=== PATIENT | female | born 1950 | race Caucasian/White ===

== ENCOUNTER 2017-10-20 10:34 | Emergency (ER) ==
[2017-10-20 10:42] VITALS: TEMP 99.6; BMI 26.7
--- NOTE | 2017-10-20 11:48 | US ---
EXAM: Left lower extremity venous Doppler History: Left lower extremity pain. Technique: Multiple sonographic images through the left lower extremity were obtained. Color duplex Doppler was used to interrogate vascular flow. Findings: The left common femoral, greater saphenous, profunda, superficial femoral, popliteal, ramsey iam, posterior tibial and anterior tibial veins demonstrate spontaneous flow with normal compression and normal augmentation. Impression: No sonographic evidence for deep venous thrombosis.
--- NOTE | 2017-10-20 12:05 | ED.PDOC ---
General ED Provider: Dr. HALEY PALACIOS Chief Complaint: Extremity Swelling/Pain Stated Complaint: LEG PAIN RLEFT SIDE Time Seen by Physician: 10:38 (SEEN WITH PMD AT ALL TIME WORSE TODAY) Mode of Arrival: Walk-In Information Source: Patient Exam Limitations: No limitations Primary Care Provider: JASON GAYLE Nursing and Triage Documentation Reviewed and Agree: Yes (CHRONIC ISSUE NO TRAUMA) Reviewed sepsis parameters & appropriate labs ordered?: Yes (SEEN WITH CELESTE FROM [facility] AND PENELOPE BOND RN AT ALL TIMES ) System Inflammatory Response Syndrome: Not Applicable Sepsis Protocol: For patient's 13 years and over: Temp is 96.8 and below OR 101 and greater Pulse >90 BPM Resp >20/minute Acutely Altered Mental Status Are patient's symptoms suggestive of a new infection, such as: -Pneumonia -Skin, Soft Tissue -Endocarditis -UTI -Bone, Joint Infection -Implantable Device -Acute Abdominal Infection -Wound Infection -Meningitis -Blood Stream Catheter Infection -Unknown System Inflammatory Response Syndrome: Not Applicable Musculoskeletal Complaint Exam - Lower Extremity Complaint/Exam Location of Pain: Reports: Left, Leg Mechanism of Injury: Reports: No known trauma Onset/Duration: X1 YR WORSE TODAY Symptoms Are: Still present Initial Severity: Mild Current Severity: Mild Location: Reports: Discrete Character: Reports: Aching Alleviating: Reports: Rest Aggravating: Reports: None Able to Bear Weight: Yes Associated Signs and Symptoms: Denies: Swelling, Redness, Bruising, Fever, Weakness, Numbness, Tingling Related History: Reports: Similar episode (X 1 YR ) DVT Risk Factors: Reports: Smoking Septic Arthritis Risk Factors: Reports: None Related Surgical History: Reports: None NV Bundle Intact Distal to Injury: No Differential Diagnoses: Arthritis, DVT, Sciatica, Strain, Sprain Review of Systems - Review Of Systems Constitutional: Reports: No symptoms Eyes: Reports: No symptoms Ears, Nose, Mouth, Throat: Reports: No symptoms Respiratory: Reports: No symptoms Cardiac: Reports: No symptoms GI: Reports: No symptoms : Reports: No symptoms Musculoskeletal: Reports: Other (LEG PAIN) Skin: Reports: No symptoms Neurological: Reports: No symptoms Endocrine: Reports: No symptoms Hematologic/Lymphatic: Reports: No symptoms All Other Systems: Reviewed and Negative Past Medical History - Past Medical History Previously Healthy: Yes Endocrine: Reports: None Cardiovascular: Reports: None Respiratory: Reports: None Hematological: Reports: None Gastrointestinal: Reports: None Genitourinary: Reports: None Neuro/Psych: Reports: None Musculoskeletal: Reports: None Cancer: Reports: None Last Menstrual Period: hysterectomy - Surgical History General Surgical History: Reports: None - Family History Family History: Reports: None - Social History Smoking Status: Current every day smoker, Heavy tobacco smoker Hx Substance Use: No Alcohol Screening: None Physical Exam - Physical Exam Appearance: Well-appearing, No pain distress, Well-nourished Eyes: MAURIZIO, EOMI, Conjunctiva clear ENT: Ears normal, Nose normal, Oropharynx normal Respiratory: Airway patent, Breath sounds clear, Breath sounds equal, Respirations nonlabored Cardiovascular: RRR, Pulses normal, No rub, No murmur GI/: Soft, Nontender, No masses, Bowel sounds normal, No Organomegaly Musculoskeletal: Normal strength, ROM intact, No edema, No calf tenderness Skin: Warm, Dry, Normal color Neurological: Sensation intact, Motor intact, Reflexes intact, Cranial nerves intact, Alert, Oriented Psychiatric: Affect appropriate, Mood appropriate Interpretation - Radiology Interpretation Radiology Interpretation By: Radiologist Radiology Results: No acute changes Critical Care Note - Critical Care Note Total Time (mins): 0 Course - Course Orders, Labs, Meds: Orders Category Date Time Status U/S VENOUS SCAN LT. LEG Stat RADS 10/20/17 11:08 Completed Vital Signs: Temp Pulse Resp BP Pulse Ox 10/20/17 10:34 99.6 F 100 H 20 170/100 H 97 Departure - Departure Time of Disposition: 12:06 (D/C INST GIVEN WITH PT'S DAUGHTER AND CELESTE FROM [facility] ) Disposition: HOME SELF-CARE Discharge Problem: Leg pain, left Instructions: Leg Pain (ED) Condition: Good Pt referred to PMD for follow-up: Yes IPMP verified?: No Additional Instructions: Please call your Family Physician as soon as possible to schedule a follow-up appointment. Allergies/Adverse Reactions: Allergies Tetanus Vaccines and Toxoid Adverse Reaction (Verified 10/20/17 10:44) Home Medications: Ambulatory Orders Cetirizine HCl [Zyrtec] 10 mg PO DIRECTED PRN 10/20/17
[2017-10-20 12:23] VITALS: BP 162/57
== END 2017-10-20 12:23 | disposition home or self-care (01) ==
LOC: ED 10:34
DX: M79.605 Pain in left leg (principal); F17.210 Nicotine dependence, cigarettes, uncomplicated; R03.0 Elevated blood-pressure reading, without diagnosis of hypertension
CPT/HCPCS: 99283

== ENCOUNTER 2017-10-26 12:49 | Outpatient (CLI) ==
--- NOTE | 2017-10-26 21:44 | MRI ---
EXAM: MRI lumbar spine without IV contrast. DATE: 26 October 2017. HISTORY: Left-sided sciatica pain. TECHNIQUE: Sagittal and axial T1W and T2W sequences of the lumbar spine along with sagittal IR and c oronal T2W sequences were obtained using 1.2 Marzena magnet. No IV contrast. COMPARISON: None. FINDINGS: There are five [id number] lumbar vertebra. Mild rightward curvature of the lumbar sp ine is evident. A 2 mm anterolisthesis of L1 relative to T12, a 2.5 mm anterolisthesis of L4 relativ e to L5, and 2.5 mm anterolisthesis of S1 relative to L5 are observed. No other subluxation, acute f racture, osseous malignancy, or pars interarticularis defect is identified. Lumbar vertebra are norm al in height. Mild T12-L1 and moderate/marked L5-S1 disc space narrowing is detected. Bone marrow s ignal is overall normal. Moderate Modic type 2 degenerate endplate changes are demonstrated at L5-S1 . Prominent osteophytes are visible in the lower thoracic spine and at L5-S1. No acute sacral fract ure or stress reaction is displayed. There is no acute sacroiliitis. Conus medullaris terminates at L1-2. Visible spinal cord is normal. No retroperitoneal lymphadenopathy, paraspinal mass, or aortic aneurysm is detected. Paraspinal musc ulature is symmetric bilaterally. Visible portions of the liver, spleen, adrenal glands, and kidneys are normal. Common bile duct is 9.7 mm diameter above the pancreatic head and 3.5 mm diameter at th e head. Cannot determine whether there is mild thickening of the ampulla Vater vs artifact. Pancrea tic duct is approximately 2.2 mm diameter in the head and tapers distally. Multiple sigmoid colon di verticuli and few descending colon diverticuli are visible. Segmental analysis: T11-12: Sagittal images reveal bilateral facet arthropathy causing minor right and mild left foramin al narrowing. No central canal stenosis. T12-L1: Minor anterolisthesis of L1, small concentric disc bulge, and minor facet arthropathy cause moderate right and minor left foraminal narrowing. No central canal stenosis. L1-2: Minor posterior disc bulge and mild facet arthropathy do not cause central stenosis or foramin al stenosis. L2-3: Minor posterior disc bulge, mild facet arthropathy, and mild ligamentum flavum hypertrophy cau se minor right foraminal narrowing. Right L2 nerve root appears to contact the disc bulge just later al to the foramen. No central canal stenosis. L3-4: Mild bilateral facet arthropathy and mild ligamentum flavum hypertrophy cause triangulation of the canal, minor right foraminal narrowing, and mild left foraminal stenosis. L4-5: Minor anterolisthesis of L4, small pseudodisc bulge, mild right facet arthropathy, moderate le ft facet arthropathy, and mild ligamentum flavum hypertrophy cause mild central canal stenosis and mi nor bilateral foraminal narrowing L5-S1: Minor anterior subluxation of S1, small concentric disc bulge, superimposed midline disc prot rusion (3.7 mm AP x 10 mm transverse), and mild facet arthropathy cause moderate central canal stenos is, marked right foraminal stenosis, and moderate left foraminal stenosis. Each L5 nerve root contac ts the disc bulge near the lateral margin of the foramen. IMPRESSIONS: 1. Lumbar spine mild dextroscoliosis, mild/moderate spondylosis, mild facet arthropathy, and multile rodrick DDD. 2. Multilevel central canal stenoses (L3-4: Minor. L4-5: Mild. L5-S1: Moderate). 3. Multilevel foraminal stenoses, especially L5-S1. Right L2 and both L5 nerve roots contact disc b ulges/osteophyte near the foramen and could be sources for pain/radiculopathy. 4. Descending and sigmoid colon diverticulosis. 5. Artifact vs slightly prominent ampulla of Vater.
== END 2017-10-26 12:50 | disposition home or self-care (01) ==
LOC: RAD 12:49
PROVIDERS: ATTEND Family Medicine
DX: M54.32 Sciatica, left side (principal)

== ENCOUNTER 2017-11-30 13:45 | Outpatient (CLI) ==
--- NOTE | 2017-11-30 15:07 | DI ---
Exam: Two x-rays of the chest. Comparison: None available. Reason for exam: Fever. FINDINGS: No pneumothorax, pleural effusion, or focal consolidation. The cardiac silhouette is not enlarged. The imaged osseous structures appear grossly unremarkable without acute fracture. Impression: No acute cardiopulmonary process.
== END 2017-11-30 13:46 | disposition home or self-care (01) ==
LOC: LAB 13:45
PROVIDERS: ATTEND Family Medicine
DX: R05 Cough (principal); R50.9 Fever, unspecified
CPT/HCPCS: 36415; 80053; 81001; 85025; 85651; 86430; 87040; 87086